=== PATIENT | male | born 1975 | race Caucasian/White ===

== ENCOUNTER 2022-01-10 14:15 | Emergency (ER) | payer OTHER, SELFPAY ==
--- NOTE | ~2022-01-10 | XR_ITS ---
EXAMINATION: XR HAND, RIGHT CLINICAL INFORMATION: Right thumb pain after trauma COMPARISON: None TECHNIQUE: PA, lateral, and oblique views of the right hand. FINDINGS: Chip fracture of the terminal tuft of the right thumb. There is overlying soft tissue ulceration. Remainder of the hands intact. There is degenerative change at the first CMC joint space. XR/XR hand RT 2V IMPRESSION: Chip fracture involving the terminal tuft of the first digit.
[2022-01-10 14:27] VITALS: BP 115/54; PULSE 83; RESP 20; TEMP 36.7; O2SAT 100; BMI 22.2
[2022-01-10] MEDS: oxyCODONE HCl Immed Release 5 MG TABLET PO (15:06)
[2022-01-10] MEDS: Ondansetron ODT 4 MG TAB.RAPDIS TRANSLINGU (15:06)
[2022-01-10] MEDS: Morphine Sulfate 4 MG/ML CARTRIDGE IM (15:06)
--- NOTE | 2022-01-10 16:29 | ED_ITS ---
HPI - Wound/Laceration General Chief Complaint: Extremity Injury, Upper Stated Complaint: thumb INJ Time Seen by Provider: 01/10/22 14:55 Source: patient and family ( at bedside ) Mode of arrival: ambulatory Limitations: no limitations History of Present Illness HPI narrative: 86-year-old male presenting to the ED with his at bedside with complaints of right thumb laceration after a large cement brick while he was doing a retaining wall fell onto his finger prior to arrival. He reports that he is not up-to-date on tetanus. He denies any paresthesias. He denies any thoughts of foreign bodies. Denies any other injuries complaints or concerns at this time. 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 Patient tetanus UTD: No Context: accidental Associated symptoms: pain Treatments prior to arrival: tourniquet Related Data Previous Rx's Medication Instructions Recorded acetaminophen 500 mg tablet 1,000 mg PO QID PRN fever or pain 01/10/22 (Tylenol Extra Strength) #14 tabs cephalexin 500 mg capsule 500 mg PO Q6H 10 days #40 caps 01/10/22 ibuprofen 800 mg tablet 800 mg PO Q8H PRN pain #14 tabs 01/10/22 oxycodone 5 mg tablet 5 mg PO Q6H PRN pain #14 tabs 01/10/22 Allergies Allergy/AdvReac Type Severity Reaction Status Date / Time No Known Allergies Allergy Verified 01/10/22 14:27 Review of Systems Review of Systems: Constitutional : No Fever, No Chills, Cardiovascular : No Chest Pain, No SOB Respiratory : No Dyspnea Gastrointestinal : No abdominal pain Musculoskeletal : No Joint Swelling Skin : positive skin laceration, No Foreign bodies, No rash, No surrounding erythema Neuro : No Weakness, No Numbness/tingling Psych : No SI/HI/thoughts of self injury Yes all other systems are reviewed and are negative [facility] Past Medical History Attestation statement: The following information was validated with the patient. Source: old records reviewed, obtained from family and nursing notes reviewed Physical Exam Vital Signs: Vital Signs: Last Vital Signs Temp 98.0 F 01/10/22 14:27 Pulse 83 01/10/22 14:27 Resp 20 01/10/22 14:27 BP 115/54 L 01/10/22 14:27 Pulse Ox 100 01/10/22 14:27 O2 Del Method 01/10/22 14:27 BMI result Body Mass Index 22.2 vital signs have been reviewed as normal and appeared to be correct. Blood pressure 115/54 Heart rate normal. Respiration rate normal. Temperature normal. Oxygen saturation normal. Appearance: Alert. Oriented X3. No acute distress. Head: Normal external exam. Normocephalic. Atraumatic. Eyes: PERRLA. EOMI. Conjunctiva and sclera normal. Eyelids normal. ENT: Pharynx normal. Uvula midline. Moist mucous membranes. Neck: Normal inspection. Neck supple. FROM. CVS: Normal heart rate and rhythm. Respiratory: No respiratory distress. Painless inspiration. Skin: Skin warm and dry. Normal skin color. Normal skin turgor. No rashes/lesi ons noted. Extremities: To the right thumb patient has a nail avulsion and a laceration to the mid to distal aspect of his thumb with muscle involvement no obvious ligamentous or tendon injury noted he has full range of motion. No bony tenderness or bone exposed at this time. Otherwise all other extremities exhibit normal range of motion nontender. Neuro: Oriented X 3. No motor deficit. No sensory deficit. Reflexes normal. Normal steady gait. No focal neuro deficits noted. Vascular: + radial pulses. Normal cap refill. No cyanosis noted to upper extremity nails Course Course Course Narrative: Patient now status post laceration repair with 10 simple running stitch. Xray of right thumb revealed chip fracture involving the terminal tuft of 1st digit. Otherwise no other acute processes noted. Patient tolerated procedure well. No complications. Patient has an appointment on Thursday with the orthopedic surgeons I discussed this case with April carver orthopedic PA. We rinsed out the wound with normal saline almost 1 L. We also updated the patient's tetanus. Therefore at this time patient will be discharged with antibiotics and instructions to follow-up with orthopedic surgeon and to return if any new or worsening symptoms. Patient and at bedside understand agree this plan. MDM - Wound/Laceration Medical Records Attestation: I reviewed the patient's medical records. Imaging Data Right hand x-ray: Attestation: I personally reviewed and interpreted this imaging study as follows: Radiologist's impression: FINDINGS: Chip fracture of the terminal tuft of the right thumb. There is overlying soft tissue ulceration. Remainder of the hands intact. There is degenerative change at the first CMC joint space.? XR/XR hand RT 2V IMPRESSION: Chip fracture involving the terminal tuft of the first digit. Procedures Laceration Laceration 1: Site: hand (thumb ) Side (If applicable): right Description: flap and irregular Depth: involves muscle layer and [id number] Local Anesthetic: bupivacaine 0.5% Amount of anesthesia used (mL): 20 Pre-repair: wound explored, irrigated extensively, deep structures intact and wound margins revised Skin layer closed with: nylon Size (cm): 4-0 Number of sutures: 10 Technique: simple, interrupted Critical Care Time Critical Care Time Critical Care Time: Yes Total Critical Care Time: 60 Attestation: I personally attest to this time spent taking care of the patient Discharge Plan Discharge Clinical Impression: Laceration of right thumb with damage to nail, Finger fracture, right, Avulsion of nail of right thumb, Crushing injury of right thumb Patient Disposition: Home, Self-Care Instructions: Finger Fracture (ED), Finger Laceration (ED), Nail Avulsion (ED) Prescriptions: New cephalexin 500 mg capsule 500 mg PO Q6H 10 Days Qty: 40 0RF ibuprofen 800 mg tablet 800 mg PO Q8H PRN (Reason: pain) Qty: 14 0RF acetaminophen [Tylenol Extra Strength] 500 mg tablet 1,000 mg PO QID PRN (Reason: fever or pain) Qty: 14 0RF oxycodone 5 mg tablet 5 mg PO Q6H PRN (Reason: pain) Qty: 14 0RF Rx Instructions: Partial Fill upon patient request. Referrals: Marilin Hopkins MD [Physician] - 3 days (Call to make a follow-up appointment on Thursday) Dana Arechiga MD [Primary Care Provider] - 1 week Interventions: ED Discharge Assessment Last Done: 01/10/22 16:50
[2022-01-10] MEDS: Diphth,Pertus(ACell),Tet Adult 0.5 ML SYRINGE IM (16:45)
== END 2022-01-10 16:53 | disposition home or self-care (01) ==
PROVIDERS: Emergency Provider Emergency Medicine; PCP Internal Medicine
DX: S61.011A Laceration without foreign body of right thumb without damage to nail, initial encounter (principal); S60.511A Abrasion of right hand, initial encounter; Y29.XXXA Contact with blunt object, undetermined intent, initial encounter; Y93.9 Activity, unspecified; Y92.9 Unspecified place or not applicable; Y99.9 Unspecified external cause status; Z79.899 Other long term (current) drug therapy
CPT/HCPCS: 12002; 73120; 90471; 90715; 96372; 99283; 99284; J2270

== ENCOUNTER 2022-04-21 19:18 | Emergency (ER) | payer OTHER, SELFPAY ==
--- NOTE | ~2022-04-21 | US_ITS ---
EXAMINATION: US VENOUS ULTRASOUND WITH DOPPLER LOWER EXTREMITY, RIGHT CLINICAL INFORMATION: Pain. Ecchymosis. COMPARISON: None TECHNIQUE: Ultrasound of the deep veins is performed from the hip to the calf with compression sonography and color and pulse Doppler assessment. Spectral analysis with color-flow imaging is performed. FINDINGS: There is normal venous compression and respiratory variation and augmented flow. The visualized common femoral vein, superficial femoral vein, profunda femoral vein, popliteal vein, and the trifurcation region shows no evidence of deep venous thrombosis. There is no significant popliteal fossa cyst. If the patient's symptoms persist, followup ultrasound in 5 days 7 days might be of value to exclude proximal propagation from a non-visualized calf vein. US/US venous duplex LE RT IMPRESSION: No DVT demonstrated in the right lower extremity.
[2022-04-21 19:46] VITALS: BP 114/73; PULSE 72; RESP 16; O2SAT 98; BMI 20.9
--- NOTE | 2022-04-21 19:55 | ED_ITS ---
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 He noticed the pain when he was kneeling on his knee at work. He denies any injury or trauma. Several days after the knee pain started he noticed scattered areas of bruising on his right lower extremity. He denies any trauma or banging his leg against anything at work. He has been able to walk and work normally. He denies any chest pain or shortness of breath. No personal or family history of blood clots. No coagulopathies that he is aware of. He is on no medications. MD complaint: knee injury Onset (ago): week(s) Injury: Right: knee Type of Injury: unknown Place: work Severity: mild Relieving factors: nothing Exacerbating factors: weight bearing, movement and palpation Associated symptoms: ambulatory Other symptoms: none Related Data Previous Rx's Medication Instructions Recorded acetaminophen 500 mg tablet 1,000 mg PO QID PRN fever or pain 01/10/22 (Tylenol Extra Strength) #14 tabs ibuprofen 800 mg tablet 800 mg PO Q8H PRN pain #14 tabs 01/10/22 Allergies Allergy/AdvReac Type Severity Reaction Status Date / Time No Known Allergies Allergy Verified 03/18/22 10:32 Review of Systems Review of Systems: Constitutional: No Fever, No Chills ENT/Mouth: No sore throat, No Rhinorrhea Cardiovascular: No Chest Pain, No SOB Gastrointestinal: No Nausea, No Vomiting, No abdominal Pain Musculoskeletal: + joint pain, No Myalgias Skin: No Skin Lesions, No rash Neuro: No Weakness, No Numbness, No Dizziness, No Headache Psych: No Anxiety/Panic, No Depression Heme/Lymph: + Bruising, No Lymphadenopathy PMFSH Social History Social History Alcohol intake: current Alcohol intake frequency: 0-2 drinks per day Alcohol type: beer Smoked in Last 30 Days: No Use of substances other than those prescribed or required for medical reasons: No Substance Use Type: Marijuana Substance Use Frequency: Weekly Last Used Substance: Days (ago) Any prior treatment program specific to substance use: No Advance Directives: No Advance Directives Information Provided: Yes Current occupational status: employed 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 Oriented X3. No acute distress. HEENT: normal inspection CVS: Normal heart rate and rhythm. Pulses normal. Respiratory: No respiratory distress. Skin: Skin warm and dry. Normal skin color. Normal skin turgor. No rashes. Extremities: right anterior/distal knee with mild generalized swelling and tenderness. no erythema or warmth. normal ROM. no joint laxiety appreciated. normal palpation of patellar tendon. scattered ecchymosis on distal right lower leg. no calf swelling or tenderness. Neuro: Oriented X 3. No motor deficit. No sensory deficit. Course Course Course Narrative: 47-year-old male presents the ER for evaluation of right knee pain and swelling along with scattered ecchymosis of the distal right leg, no trauma. Will check coags, platelets, ultrasound lower extremity to rule out DVT. Reevaluation(s) Reevaluation #1: Labs are normal. Coags are normal. Ultrasound did not show any evidence of DVT. Place an Manas wrap for support and compression. Will have him follow up with Orthopedics and his PCP. Stable for discharge home. MDM - Extremity Injury (Lower) Lab Data Result diagrams: 04/21/22 20:06 04/21/22 20:05 Labs: Lab Results 04/21/22 04/21/22 04/21/22 Range/Units 20:05 20:06 20:06 WBC 8.7 (4.8-10.8) X10*3/uL RBC 4.61 (4.60-5.80) X10*6/uL Hgb 14.9 (14.0-18.0) g/dl Hct 42.8 (42.0-52.0) % MCV 92.8 (80.0-98.0) fL MCH 32.3 (27.0-33.0) pg MCHC 34.8 (31.0-36.0) g/dl RDW 12.7 (11.0-16.0) % Plt Count 257 (160-400) X10*3/uL MPV 9.7 (9.4-12.4) fL Immature Gran % (Auto) 0.2 (0.0-0.4) % Neut % (Auto) 58.2 (45-73) % Lymph % (Auto) 28.0 (20-40) % Branch % (Auto) 9.7 (2-11) % Eos % (Auto) 3.1 (0-4) % Baso % (Auto) 0.8 (0-2) % Lymph # (Auto) 2.4 (1.2-4.9) X10*3/uL Branch # (Auto) 0.8 (0.1-1.2) X10*3/uL Eos # (Auto) 0.3 (0.0-0.4) X10*3/uL Baso # (Auto) 0.1 (0.0-0.2) X10*3/uL Abs Immat Gran (auto) 0.02 (0.00-0.03) X10*3/uL Absolute Neuts (auto) 5.1 (2.0-8.3) x10*3/uL Absolute Nucleated RBC 0.000 (0.0-0.012) X10*3/uL Nucleated RBC % (auto) 0.0 (0.0-0.2) /100WBC PT 11.0 (10.0-13.1) SEC INR 1.0 (0.9-1.1) APTT 32.9 (26.0-36.4) SEC Sodium 141 (135-145) mmol/L Potassium 4.1 (3.3-5.1) mmol/L Chloride 102 (96-108) mmol/L Carbon Dioxide 28 (22-29) mmol/L Anion Gap 15 (12-20) BUN 12 (9-16) mg/dL Creatinine 0.69 (0.5-1.4) mg/dL Estim Creat Clear Calc 127.3 Estimated GFR > 60 Random Glucose 69 (60-115) mg/dL Calcium 9.2 (8.4-10.2) mg/dL Total Bilirubin 0.4 (0.0-1.0) mg/dL Direct Bilirubin < 0.2 (0.0-0.5) mg/dL AST 27 (5-37) U/L ALT 29 (0-40) U/L Alkaline Phosphatase 63 (39-117) U/L Total Protein 7.0 (6.5-8.0) g/dL Albumin 4.3 (3.5-5.0) g/dL Critical Care Time Critical Care Time Critical Care Time: No Discharge Plan Discharge Clinical Impression: Acute pain of right knee Patient Disposition: Home, Self-Care Instructions: Knee Pain (ED) Additional Instructions: Your lab workup today was unremarkable. Your ultrasound did not show evidence of blood clot. Recommend you wearing the provided Manas wrap for compression and support. Rest and elevate your knee when possible. Apply ice several times per day to help with swelling and pain. Recommend following up with orthopedics for further evaluation. If you develop new or worsening symptoms call 911 or come back to the ER for further evaluation. Prescriptions: No Action ibuprofen 800 mg tablet 800 mg PO Q8H PRN (Reason: pain) Qty: 14 0RF acetaminophen [Tylenol Extra Strength] 500 mg tablet 1,000 mg PO QID PRN (Reason: fever or pain) Qty: 14 0RF Ref[place]: [facility] [place] [facility] [place] Group] (right knee pain)
[2022-04-21 20:10] LABS: Basophils Absolute Auto 0.1 X10*3/uL (0.0-0.2); Basophils Percent Auto 0.8 % (0-2); Eosinophils Absolute Auto 0.3 X10*3/uL (0.0-0.4); Eosinophils Percent Auto 3.1 % (0-4); Hematocrit 42.8 % (42.0-52.0); Hemoglobin 14.9 g/dl (14.0-18.0); Imm Gran Abs Auto 0.02 X10*3/uL (0.00-0.03); Imm Gran Pct Auto 0.2 % (0.0-0.4); Lymphocytes Absolute Auto 2.4 X10*3/uL (1.2-4.9); MANUAL DIFF FLAG NO; Mean Corpuscular HGB Conc 34.8 g/dl (31.0-36.0); Mean Corpuscular Hemoglobin 32.3 pg (27.0-33.0); Mean Corpuscular Volume 92.8 fL (80.0-98.0); Mean Platelet Volume 9.7 fL (9.4-12.4); Monocytes Absolute Auto 0.8 X10*3/uL (0.1-1.2); Monocytes Percent Auto 9.7 % (2-11); Neutrophils Absolute Auto 5.1 x10*3/uL (2.0-8.3); Neutrophils Percent Auto 58.2 % (45-73); Platelet Count 257 X10*3/uL (160-400); Red Blood Count 4.61 X10*6/uL (4.60-5.80); Red Cell Distribution Width 12.7 % (11.0-16.0); White Blood Count 8.7 X10*3/uL (4.8-10.8)
[2022-04-21 20:21] VITALS: BP 103/68; PULSE 54; RESP 16; TEMP 37.2; O2SAT 98
[2022-04-21 20:26] LABS: Partial Thromboplastin Time 32.9 SEC (26.0-36.4)
[2022-04-21 20:34] LABS: Alanine Aminotransferase 29 U/L (0-40); Albumin Level 4.3 g/dL (3.5-5.0); Alkaline Phosphatase 63 U/L (39-117); Anion Gap 15 (12-20); Aspartate Amino Transferase 27 U/L (5-37); Bilirubin Direct < 0.2 mg/dL (0.0-0.5); Bilirubin Total 0.4 mg/dL (0.0-1.0); Blood Urea Nitrogen 12 mg/dL (9-16); Calcium 9.2 mg/dL (8.4-10.2); Carbon Dioxide 28 mmol/L (22-29); Chloride 102 mmol/L (96-108); Creatinine Clr Calc Pharmacy 127.3; Estimated Glomerular Filt Rate > 60; Glucose Random 69 mg/dL (60-115); Potassium 4.1 mmol/L (3.3-5.1); Sodium 141 mmol/L (135-145)
[2022-04-21 21:31] VITALS: BP 106/60; PULSE 55; RESP 14; O2SAT 99
== END 2022-04-21 21:39 | disposition home or self-care (01) ==
PROVIDERS: Physician Assistant; Emergency Provider Internal Medicine
DX: M25.561 Pain in right knee (principal)
CPT/HCPCS: 36415; 80048; 80076; 85025; 85610; 85730; 93971; 99284

== ENCOUNTER 2022-07-03 15:59 | Outpatient (REF) | payer OTHER, SELFPAY | END 2022-07-03 16:00 | disposition home or self-care (01) | LOC: HO.HOSX 15:59 | PROVIDERS: Visit Provider Orthopaedic Surgery | DX: Z13.89 Encounter for screening for other disorder (principal) ==

== ENCOUNTER 2022-07-04 16:55 | Outpatient (REF) | payer OTHER, SELFPAY | END 2022-07-04 16:56 | disposition home or self-care (01) | LOC: HO.HOSX 16:55 | PROVIDERS: Visit Provider Orthopaedic Surgery | DX: Z13.89 Encounter for screening for other disorder (principal) ==

== ENCOUNTER 2023-08-11 13:52 | Outpatient (REF) | payer OTHER, SELFPAY ==
--- NOTE | ~2023-08-11 | XR_ITS ---
EXAMINATION: XR HAND, RIGHT CLINICAL INFORMATION: Thumb pain. COMPARISON: Radiographs dated 01/10/2022. TECHNIQUE: PA, lateral, and oblique views of the right hand. FINDINGS: There is interim healing of the previously identified avulsion fragment of the tuft of the first distal phalanx. Minimal soft tissue osseous fragments remain. No dislocation is seen. There is no abnormal bone erosion. The proximal and distal carpal rows are intact. No focal soft tissue swelling, gas or foreign body is seen. XR/XR hand RT min 3V IMPRESSION: Interim healing is noted on the previous identified avulsion fragment of the tuft of the right first distal phalanx. There are adjacent tiny chronic soft tissue calcifications, likely old minute avulsion fragments. There is no acute finding.
== END 2023-08-11 13:53 | disposition home or self-care (01) ==
LOC: HO.HOSX 13:52
PROVIDERS: Visit Provider Orthopaedic Surgery
DX: M79.641 Pain in right hand (principal); M79.644 Pain in right finger(s); L60.2 Onychogryphosis
CPT/HCPCS: 73130

== ENCOUNTER 2023-08-11 13:52 | Outpatient (AMB) | payer OTHER, SELFPAY ==
--- NOTE | 2023-08-11 14:17 | MHC.OFFVIS ---
Intake Vital Signs 08/11/23 14:18 Height 5 ft 10 in Weight 160 lb BMI 23.0 Intake Visit Reasons: OV-RT thumb pain D.O.I 01/10/22 Intake Note: Jose 48 yr old male who is right hand dominant presents today for his right thumb pain. He is S/P rt thumb laceration,states his thumb was caught in between 2 rocks on 01/10/2022. States he continues to have pain and sensitivity at tip of his thumb and interfering at work. Allergies No Known Allergies Allergy (Verified 08/11/23 14:19) HPI OV-RT thumb pain D.O.I 01/10/22 HPI Details Jose is a 48 year old right hand dominant man who presents with complaints of right thumb tip pain. He has a hx of right thumb open distal phalanx fracture, from a laceration & crush injury, DOI: 01/10/22. At his last appointment with SHRUTI Chen on 04/29/22 he had no thumb pain or other complaints. He presents today with complaints of pain and sensitivity to the ulnar tip of his thumb. The pain and tenderness appears to be at the edge of the sterile matrix on the more ulnar aspect of the thumb nail where it meets the hyponychium. He says his nail is not growing in properly and seems to curl down when its growing. he says this is whats causing his pain, and when he cuts his nail it eventually grows back in this position. He says he has numbness to the tip of his thumb, where it has more length on the radial tip of the thumb.. He describes this as if his thumb has been burned . He says he has developed some clumsiness and difficulty gripping writing utensils. 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 All wounds have healed well with no erythema drainage or evidence of infection. He had a crush injury to the tip of the thumb and had an eschar at the tip of the thumb that came off sometime in April of 2022. However it does appear that he lost some of the tissue in the ulnar tip of the thumb. The radial tip of the thumb has more length but is also relatively insensate to the tip of the thumb. He demonstrates that the area of most tenderness is where the ulnar edge of the sterile matrix meets the hyponychium. Indeed, the nail is shorter in this area, and the patient says that when it does grow out it tends to curl to a bit of a hook nail. Radiographs: 3 views of the right hand, with attention to the thumb, were taken and viewed by me today in clinic. They show a healed thumb distal phalanx fracture. There is perhaps some loss of bone at the ulnar tip of the distal phalanx. Psych Appearance: grossly normal Affect: normal affect Attitude: cooperative Assessment & Plan Assessment & Plan (1) Hook nail: Code(s): L60.2 - Onychogryphosis (2) Pain of right thumb: Code(s): M79.644 - Pain in right finger(s) Plan Assessment and plan: 1. Right thumb pain and hook nail, status post crush injury and partial tip amputation. Hx of open distal phalanx fracture, DOI: 01/10/22 2. Right thumb tip insensate again in area of crush injury and the radial tip. I educated him about this condition I discussed operative and non-operative treatment options At this point I am recommending a revision amputation of the tip of the right thumb with some shortening of the radial aspect of the distal phalanx, and also with excision of the distal aspect of the sterile nail matrix to get rid of his painful hook nail. The patient would like to proceed with surgery The risks and benefits of operative treatment were discussed with the patient and the patient wishes to proceed with surgery. These risks include, but are not limited to risk of damage to blood vessels, nerves, tendons, infection, recurrence, incomplete relief of preoperative symptoms, persistent pain, possible need for further surgery and the risks associated with regional blocks and anesthesia. The plan is to take the patient to the operating room sometime on 08/13/23 for the following procedures: 1. Right thumb revision amputation, under general 2. Right thumb excision of distal aspect of sterile nail matrix to alleviate hook nail, under general All of the preoperative paperwork including the consent was reviewed today. All the patient's questions were answered. The patient understands that they will be contacted by our surgery center administrator soon to schedule this procedure He denies Diabetes, blood thinners, asthma, heart, lung, kidney issues 2. History of right thumb open distal phalanx fracture 3. History of right thumb crush injury with ischemia of a flap of skin at the tip of the thumb. Scribed for Marilin Hopkins MD by Ole Cross, medical reviewer, on 08/11/23 at 2:55 PM, EST. Orders: Orders XR hand RT min 3V Today M79.641 - Pain in right hand Coding Level of Care Code Est Pt Level 4 (73644) Diagnoses Hook nail L60.2 Pain of right thumb M79.644
[2023-08-11 14:18] VITALS: BMI 23.0
== END 2023-08-11 15:13 | disposition home or self-care (01) ==
PROVIDERS: Visit Provider Orthopaedic Surgery
DX: S67.01XD Crushing injury of right thumb, subsequent encounter (principal); S68.521D Partial traumatic transphalangeal amputation of right thumb, subsequent encounter; L60.2 Onychogryphosis; M79.644 Pain in right finger(s)
CPT/HCPCS: 99214

== ENCOUNTER 2023-08-13 06:52 | Day surgery (SDC) | payer OTHER, SELFPAY ==
[2023-08-13 07:50] VITALS: BMI 24.8
[2023-08-13 07:52] VITALS: BP 118/65; PULSE 62; RESP 16; TEMP 37.3; O2SAT 96
--- NOTE | 2023-08-13 07:57 | HO.ANESPROP2 ---
HPI - Anesthesia Eval Consult details Narrative: thumb first digit amputation right PMFSH Active Problems Active Problems: All Active Problems (Updated 08/11/23 @ 16:23 by Marilin Hopkins MD) Pain of right thumb (Acute) Hook nail (Acute) Fracture of thumb, right open (Acute) Family History Family history of problems with anesthesia: No Surgical History History of Problems with Anesthesia: No Social History Social History Alcohol intake: current Alcohol intake frequency: 0-2 drinks per day Alcohol type: beer Patient Tobacco Use Status: Former Tobacco user Use of substances other than those prescribed or required for medical reasons: Yes Substance Use Type: Marijuana Are you DNR?: No Advance Directives: No Advance Directives Information Provided: Yes Current occupational status: employed 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 Discussed (marihuana daily smoking) and Chart Reviewed Final Anesthetic Review Family History of Problems with Anesthesia: No History of Problems with Anesthesia: No NPO: Yes ASA Class: II Final Preanesthetic Review: No Changes in Pt Med Stat, Meds/Allgs Chart Reviewed, Consent Obtained/Reviewed and Anes Risks/Benef Reviewed Patient Risk: Intermediate Procedure Risk: Low Anesthetic Plan Anesthetic Plan: GA Disposition: Standard PACU
[2023-08-13] MEDS: Lactated Ringers 1,000 ML 80 ML IVCONT (08:10)
--- NOTE | 2023-08-13 08:55 | P.OP_ITS ---
Operative Note Operative Note Date of Service: 08/13/23 Narrative: Operative Note Narrative: Preop diagnosis: 1. Painful Right thumb hook nail , ulnar-sided, following a crush injury 2. Insensate skin to the radial tip of the right thumb following a crush injury Postop diagnosis: Same Procedure: 1. Right thumb revision amputation with shortening of the distal phalanx 2. Right thumb excision of distal 2-3 mm of nail bed sterile matrix to correct hook nail deformity Surgeon: Marilin Hopkins MD Anesthesia: General Anesthesia Findings: Distal ulnar aspect of the right thumb nail bed noted to be depressed and angled downward, thus causing the hook nail deformity. Implants: None Tourniquet time: 30 minutes EBL: 5.0 ml Specimen: None Drains: None Complications: None Disposition: Brought to the recovery room in stable condition Plan: Follow-up in 10-14 days for wound check Anticipate suture removal at 3 weeks postop. Indications: The patient is a 48 year old man with crush injury to the tip of his right thumb with a nail bed injury resulting in an insensate more prominent radial tip of the thumb, and partial loss of bone structure at the ulnar tip of the thumb with depression of the soft tissues including the nail bed resulting in a painful hook nail deformity. . The risks and benefits of operative treatment, including but not limited to risk of damage to blood vessels, nerves, tendons, infection, recurrence, persistent pain or numbness, incomplete resolution of preoperative symptoms, or need for further surgery were discussed with the patient and they wished to proceed with surgery. Procedure: Once consent was obtained patient was brought back to the operating suite and placed in the operating table in a supine position. . Perioperative antibiotics and anesthesia was administered by the anesthesia team. A to urniquet was applied to the proximal aspect of the right upper extremity and the limb was prepped and draped in a standard surgical fashion. The limb was elevated exsanguinated with Esmarch bandage and the tourniquet inflated to 250 mm of mercury for a total tourniquet time of 30 minutes. I made a transverse incision at the distal edge of the right thumb nail bed sterile matrix and edge of the hyponychium. The incision was made through the skin and subcutaneous tissue and down onto the distal phalanx. I then used a [place] elevator to elevate the soft tissues off of the tip of the distal phalanx. I also used the [place] elevator to detach the nail plate from the distal 6 mm of the distal nail bed. I then used a pair of sharp scissors to cut transversely removing the distal 6 mm of the nail plate, thus exposing the distal aspect of the nail bed. He had some bone loss off the ulnar tip of the distal phalanx that then resulted in depression of the soft tissues including the ulnar aspect of the sterile matrix. This appeared to be what was causing his painful hook nail deformity. I used a rongeur to remove a few mm from the more radial edge of the distal phalanx, leveling the radial and ulnar aspects of the distal phalanx. I then cut about 2 mm off of the distal edge of the sterile matrix including the portion of the ulnar side of the sterile matrix that was causing the hook nail. This was then removed and placed on the back table. We now had a better supported edge of the distal sterile matrix across the entire width of the nail bed. I then used a 15. Blade to remove a few mm of the insensate skin from the more radial aspect of the tip of the thumb. The wound was then copiously irrigated with normal saline. I then brought the skin edge of the hyponychium up to the distal aspect of the nail bed. I was also able to shift some of the thicker tissues that were more radial, into a more ulnar position. The skin of the eponychium was then reapproximated to the distal edge of the nail bed using some 4-0 Prolene sutures. I was very happy with the overall appearance of the thumb, and believe this should likely resolve the hook nail deformity. At this point the tourniquet was deflated and hemostasis obtained with a brief period of local pressure . The wound was copiously irrigated with normal saline. A digital block was performed using some 0.5% ropivacaine and a sterile soft dressing was applied. The patient appears to have tolerated the procedure well and with no complications. All digits were well vascularized conclusion of the case including the flap of skin at the tip of the thumb..
--- NOTE | 2023-08-13 08:55 | MHC.SHP ---
Pre-Procedural Eval Section A - 24 Hr Update-Section A only Date of Service: 08/13/23 The patient is an INPATIENT: No The patient has been examined within 24 hours of the surgical procedure. The History & Physical has been completed within 30 days and I have reviewed it.: Yes Section B - Complete if H&P > 30 days Chief Complaint: Pain in right hand,Laceration without foreign body Allergies: Allergies Allergy/AdvReac Type Severity Reaction Status Date / Time No Known Allergies Allergy Verified 08/11/23 14:19 Plan I have reviewed the history and physical and performed a pertinent physical examination on my patient. No changes have occurred unless specified. Time Spent With Patient Time: Total time managing care of this patient today ____ minutes.
[2023-08-13 10:20] VITALS: BP 119/62; PULSE 71; RESP 16; TEMP 36.8; O2SAT 98
[2023-08-13 10:25] VITALS: BP 111/61; PULSE 71; RESP 16; O2SAT 97
[2023-08-13 10:30] VITALS: BP 116/53; PULSE 63; RESP 17; O2SAT 96
[2023-08-13 10:35] VITALS: BP 108/56; PULSE 61; RESP 17; O2SAT 95
[2023-08-13 11:01] VITALS: BP 114/73; PULSE 80; RESP 17; TEMP 36.7; O2SAT 98
== END 2023-08-13 11:45 | disposition home or self-care (01) ==
PROVIDERS: PCP Internal Medicine; Visit Provider Orthopaedic Surgery
PROC: (CPT 26951; principal; 2023-08-13 08:40)
DX: M79.644 Pain in right finger(s) (principal); L60.9 Nail disorder, unspecified; R20.8 Other disturbances of skin sensation; L98.8 Other specified disorders of the skin and subcutaneous tissue; Z87.81 Personal history of (healed) traumatic fracture; Z87.828 Personal history of other (healed) physical injury and trauma
CPT/HCPCS: 26951; 11750; J0131; J0690; J2250; J2704; J2795; J3010

== ENCOUNTER → 2023-08-13 06:52 | Outpatient (BNV) | payer OTHER, SELFPAY | PROVIDERS: PCP Internal Medicine; Visit Provider Orthopaedic Surgery | DX: S67.01XA Crushing injury of right thumb, initial encounter (principal); L60.9 Nail disorder, unspecified | CPT/HCPCS: 11750; 26951 ==

== ENCOUNTER 2023-08-25 08:38 | Outpatient (AMB) | payer OTHER, SELFPAY ==
--- NOTE | 2023-08-25 08:51 | MHC.OFFVIS ---
Intake Vital Signs 08/25/23 09:01 Height 5 ft 9 in Weight 170 lb BMI 25.1 Intake Visit Reasons: PO RT thumb rev amp 08/13/23 AR Intake Note: Jose 48 yr old male presents today for his PO RT thumb rev amp 08/13/23 AR wound check visit. States he is doing well and has no pain. Allergies No Known Allergies Allergy (Verified 08/25/23 08:53) HPI PO RT thumb rev amp 08/13/23 AR HPI Details Jose is a 48 year old right hand dominant man who returns S/P right thumb revision amputation with shortening of the distal phalanx & excision of distal nail bed sterile matrix, to correct a hook nail. DOS: 08/13/23. He has a hx of right thumb open distal phalanx fracture, from a laceration & crush injury, DOI: 01/10/22, which resulted in a painful hook nail. He is here for a wound check. He says he is doing well today, and denies any pain. He says following surgery he felt a throbbing pain in his thumb at night, but this resolved by the morning. He is pleased with the improved appearance of his thumb as well. 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 Good active thumb ROM Sensation is intact to the pad of the thumb. Cap refill is brisk Psych Appearance: grossly normal Affect: normal affect Attitude: cooperative Assessment & Plan Assessment & Plan (1) Hook nail: Code(s): L60.2 - Onychogryphosis Plan Assessment and plan: 1. Right thumb painful hook nail, S/P revision amputation with shortening of the distal phalanx & excision of distal nail bed sterile matrix, DOS: 08/13/23 Hx of open distal phalanx fracture, DOI: 01/10/22, from a crush injury 2. Right thumb tip insensate was in area of crush injury and the radial tip. Some of this insensate skin was excised, and the skin mobilized slightly to the opposite side defect. We will assess for sensation next time. The patient appears to be doing well post-operatively. I educated him about the post-operative course I explained the signs and symptoms of infection, if the patient develops any new or worsening erythema, drainage, pain, or warmth they should contact the clinic or attend the ED. I discussed activity modifications, he is to lift nothing heavier than a cellphone for the next several weeks He will perform gentle ROM exercises at home He is able to wash this in the shower He should avoid any underwater activities at this time He should keep this clean & covered when at work or out of the house. 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 He will follow up in 2 weeks for suture removal. Scribed for Marilin Hopkins MD by Ole Cross, biomedical photographer, on 08/25/23 at 9:00 AM, EST. Orders: Orders XR hand RT min 3V Today M79.641 - Pain in right hand Coding Level of Care Code Global (37554) Diagnoses Hook nail L60.2
[2023-08-25 09:01] VITALS: BMI 25.1
== END 2023-08-25 09:11 | disposition home or self-care (01) ==
PROVIDERS: Visit Provider Orthopaedic Surgery
DX: L60.2 Onychogryphosis (principal)
CPT/HCPCS: 99024

== ENCOUNTER 2023-08-25 10:10 | Outpatient (REF) | payer OTHER, SELFPAY ==
--- NOTE | ~2023-08-25 | XR_ITS ---
EXAMINATION: XR HAND, RIGHT CLINICAL INFORMATION: Pain. COMPARISON: Prior radiographs, most recently 08/11/2023. TECHNIQUE: PA, lateral, and oblique views of the right hand. FINDINGS: The bones and soft tissues are normal. There is a healed fracture of the tuft of the first distal phalanx, with adjacent minimal particulate comminution fragments. No acute fracture or dislocation is seen. Alignment is anatomic. The index finger is held in mild adduction. Joint spaces are maintained. No erosions or soft tissue calcifications. At the medial right wrist, an 8 mm dermal contour abnormality is seen, which may be correlated clinically. XR/XR hand RT min 3V IMPRESSION: No acute fracture or dislocation is seen. There is no abnormal erosive or change. No foreign body is seen.
== END 2023-08-25 10:11 | disposition home or self-care (01) ==
LOC: HO.HOSX 10:10
PROVIDERS: Visit Provider Orthopaedic Surgery
DX: M79.641 Pain in right hand (principal); L60.2 Onychogryphosis
CPT/HCPCS: 73130

== ENCOUNTER 2023-09-09 08:49 | Outpatient (AMB) | payer OTHER, SELFPAY ==
--- NOTE | 2023-09-09 08:58 | A.OFFVIS_ITS ---
Intake Intake Visit Reasons: PO stitches RT thumb rev amp 08/13/23 AR Intake Note: Jose 48 yr old male presents today for his PO visit for his right thumb rev amp 08/13/23 AR. States he is doing well and has no pain. Sutures removed and steri strips applied. Allergies No Known Allergies Allergy (Verified 09/09/23 08:59) HPI PO stitches RT thumb rev amp 08/13/23 AR HPI Details Jose is a 48 year old right hand dominant man who returns S/P right thumb revision amputation with shortening of the distal phalanx & excision of distal nail bed sterile matrix, to correct a hook nail, DOS: 08/13/23. He had a hx of right thumb open distal phalanx fracture, from a laceration & crush injury, DOI: 01/10/22, which resulted in a painful hook nail. He is here for a wound check & suture removal. He says he is doing well today, and denies any pain. He is pleased with the improved appearance of his thumb and he says he has been able to engage in activities more comfortably, such as tying his shoes. He does say he has some pain when he bumps his thumb against surfaces, but this is tolerable. He says his sensation is improved to the tip of his thumb. 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 Most sutures removed today, two remaining Good active thumb ROM Sensation is intact to the pad of the thumb, and more normal to the tip of the thumb Cap refill is brisk Psych Appearance: grossly normal Affect: normal affect Attitude: cooperative Assessment & Plan Assessment & Plan (1) Hook nail: Code(s): L60.2 - Onychogryphosis Plan Assessment and plan: 1. Right thumb painful hook nail, S/P revision amputation with shortening of the distal phalanx & excision of distal nail bed sterile matrix, DOS: 08/13/23 Hx of open distal phalanx fracture, DOI: 01/10/22, from a crush injury 2. Right thumb tip insensate was in area of crush injury and the radial tip. Some of this insensate skin was excised, and the skin mobilized slightly to the opposite side defect. He feels his sensation is more normal today The patient appears to be doing well post-operatively. He is happy with the results of his surgery. Most sutures removed today in clinic I educated him about the post-operative course I discussed activity modifications, he is able to use his hand for lightweight activities and slowly increase his weight limit as tolerated. He will perform ROM exercises at home He is able to wash this in the shower He should avoid any underwater activities until at least the weekend He should keep this clean & covered when at work or out of the house for the next week. 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 He will follow up next week for removal of remaining sutures Scribed for Marilin Hopkins MD by Ole Cross, medical office rep, on 09/09/23 at 9:00 AM, EST. Coding Level of Care Code Global (38534) Diagnoses Hook nail L60.2
== END 2023-09-09 09:22 | disposition home or self-care (01) ==
PROVIDERS: Visit Provider Orthopaedic Surgery
DX: L60.2 Onychogryphosis (principal)
CPT/HCPCS: 99024

== ENCOUNTER → 2023-09-09 08:49 | Outpatient (BNVA) | payer OTHER, SELFPAY | PROVIDERS: Visit Provider Orthopaedic Surgery ==

== ENCOUNTER 2023-09-16 09:34 | Outpatient (AMB) | payer OTHER, SELFPAY ==
[2023-09-16 09:37] VITALS: BMI 25.1
--- NOTE | 2023-09-16 09:37 | A.OFFVIS_ITS ---
Intake Vital Signs 09/16/23 09:37 Height 5 ft 9 in Weight 170 lb BMI 25.1 Intake Visit Reasons: PO- stitches RT thumb rev amp 08/13/23 AR Intake Note: Jose 48 yr old male presents today for his PO visit for his right thumb rev amp 08/13/23 AR. States he is doing well and has no pain. Remaining sutures removed. Allergies No Known Allergies Allergy (Verified 09/16/23 09:40) HPI PO- stitches RT thumb rev amp 08/13/23 AR HPI Details Jose is a 48 year old right hand dominant man who returns S/P right thumb revision amputation, DOS: 08/13/23. He is here for a wound check & remaining suture removal. He says he is doing well today, and denies any pain. He is pleased with the improved appearance of his thumb and he says he has been able to engage in activities more comfortably, such as tying his shoes. He says his sensation is improved to the tip of his thumb. 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 Remaining sutures removed today Good active thumb ROM Sensation is intact to the pad and now the tip of the thumb, secondary to skin rearrangement procedure Cap refill is brisk At present the nail appears to be growing out straight, and I no longer see evidence of a hook nail Psych Appearance: grossly normal Affect: normal affect Attitude: cooperative Assessment & Plan Assessment & Plan (1) Hook nail: Code(s): L60.2 - Onychogryphosis Plan Assessment and plan: 1. Right thumb painful hook nail, S/P revision amputation with shortening of the distal phalanx & excision of distal nail bed sterile matrix, and tissue rearrangement DOS: 08/13/23 Hx of open distal phalanx fracture, DOI: 01/10/22, from a crush injury 2. Right thumb tip insensate was in area of crush injury and the radial tip. Some of this insensate skin was excised, and the skin mobilized slightly to the opposite side defect. He feels his sensation to the tip of the thumb is more normal compared with before surgery. The patient appears to be doing well post-operatively. He is very happy with the results of his surgery. Remaining sutures removed today in clinic I educated him about the post-operative course He can now resume activities as tolerated. He will follow up p.r.n. Scribed for Marilin Hopkins MD by Ole Cross, medical representative, on 09/16/23 at 9:50 AM, EST. Coding Level of Care Code Global (11197) Diagnoses Hook nail L60.2
== END 2023-09-16 10:03 | disposition home or self-care (01) ==
PROVIDERS: Visit Provider Orthopaedic Surgery
DX: L60.2 Onychogryphosis (principal)
CPT/HCPCS: 99024

== ENCOUNTER → 2023-09-16 09:34 | Outpatient (BNVA) | payer OTHER, SELFPAY | PROVIDERS: Visit Provider Orthopaedic Surgery ==

== ENCOUNTER 2024-12-19 00:24 | Inpatient (IN) | payer OTHER, SELFPAY ==
[2024-12-19] VITALS (11 sets, daily range): BP systolic 101–133; BP diastolic 66–83; PULSE 64–110; RESP 11–20; TEMP 36.5–36.9; O2SAT 95–99; BMI 25.0; BMI 22.4
--- NOTE | 2024-12-19 | ECG_ITS ---
Test Reason : SEIZURES Blood Pressure : */* mmHG Vent. Rate : 91 BPM Atrial Rate : * BPM P-R Int : * ms QRS Dur : 102 ms QT Int : 372 ms P-R-T Axes : * 58 57 degrees QTcB Int : 457 ms Atrial fibrillation Abnormal ECG No previous ECGs available Referred By: Generic ED Physician Electronically Signed By: SHI CRUZ
--- NOTE | ~2024-12-19 | CT_ITS ---
CLINICAL HISTORY: new seizure activity CT Head WO Contrast COMPARISON: None provided FINDINGS: No acute intracranial hemorrhage. No evidence of acute infarction. No mass-effect or midline shift. No hydrocephalus. Cyst or polyp in the right maxillary sinus. Small fluid in the paranasal sinuses. The mastoid air cells are clear. The visible orbits are normal. No acute fracture. Unremarkable soft tissues. IMPRESSION: No acute intracranial findings. This document has been electronically signed by: Dustin Griffin MD on 12/19/2024 04:32:14
[2024-12-19 00:50] LABS: Hematocrit 41.4 % (42.0-52.0); Hemoglobin 14.7 g/dl (14.0-18.0); Imm Gran Abs Auto 0.06 X10*3/uL (0.00-0.03); Imm Gran Pct Auto 0.9 % (0.0-0.4); Lymphocytes Absolute Auto 2.3 X10*3/uL (1.2-4.9); MANUAL DIFF FLAG NO; Mean Corpuscular HGB Conc 35.5 g/dl (31.0-36.0); Mean Corpuscular Hemoglobin 32.7 pg (27.0-33.0); Mean Corpuscular Volume 92.0 fL (80.0-98.0); NRBC Abs Auto 0.000 X10*3/uL (0.0-0.012); NRBC Pct Auto 0.0 /100WBC (0.0-0.2); Platelet Count 208 X10*3/uL (160-400); Red Blood Count 4.50 X10*6/uL (4.60-5.80); White Blood Count 6.4 X10*3/uL (4.8-10.8)
[2024-12-19 01:04] LABS: Alanine Aminotransferase 30 U/L (0-40); Albumin Level 4.3 g/dL (3.5-5.0); Alkaline Phosphatase 68 U/L (39-117); Anion Gap 15 (12-20); Aspartate Amino Transferase 35 U/L (5-37); Blood Urea Nitrogen 15 mg/dL (9-16); Calcium 8.6 mg/dL (8.4-10.2); Carbon Dioxide 27 mmol/L (22-29); Chloride 102 mmol/L (96-108); Creatinine Clr Calc Pharmacy 113.9; Estimated Glomerular Filt Rate > 60; Potassium 3.9 mmol/L (3.3-5.1); Sodium 140 mmol/L (135-145); Total Protein 6.6 g/dL (6.5-8.0)
[2024-12-19 01:10] LABS: Troponin-I High Sensitivity < 2.7 ng/L (<3.5-35.0)
--- NOTE | 2024-12-19 01:44 | ED_ITS ---
HPI - Seizure General Chief Complaint: Seizure Stated Complaint: SEIZURE Time Seen by Provider: 12/19/24 01:43 Source: patient, family and EMS Mode of arrival: EMS Limitations: no limitations History of Present Illness ED Provider: Dr. Lucía Daley HPI Narrative: [age] year old male with a history alcohol use disorder presenting seizure activity that occurred immediately prior to arrival. Patient states that he does not recall everything that happened. Went to bed last night around 8 or 9:00 p.m. and next thing he remembers is waking up with ENT standing over him. His is at bedside and reports that she heard him having sonorous respirations and noted him to have seizure activity with full body shaking that lasted approximately 10 minutes. She called 911 and ultimately the patient became slightly confused and was walking around to the bathroom, lifting up the toilet seat, not communicating appropriately. EMS reports postictal behavior upon their arrival to the home. Patient admits that he is a 10-12 beer per day drinker and has been drinking like this for about a year now. Admits he has not tried to stop drinking before. Wanted to start cutting back and has not had a drink for 48 hours or so. No history of seizure activities. Had been feeling well prior to this event. Denies recent illness including fever, headache, vision changes, numbness/tingling/weakness of the extremities, nausea or vomiting bowel changes or urinary complaints. Seizure History: No Place: Home Related Data Home Medications ?Medication ?Instructions ?Recorded ?Confirmed No Known Home Meds 12/19/24 12/19/24 Allergies Allergy/AdvReac Type Severity Reaction Status Date / Time No Known Allergies Allergy Verified 12/19/24 00:38 Review of Systems 2 Review of Systems: Yes all other systems are reviewed and are negative (As per HPI ) [facility] Past Medical History Source: obtained from family Medical History Alcohol dependence Social History Social History Household Members: Spouse Housing: House Do you presently have visiting nurse or other home services: No Alcohol intake: former Patient Tobacco Use Status: Former Tobacco user Substance Use Type: Marijuana Current occupational status: employed 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 SKIN: Normal skin color for ethnicity, warm, dry, no rashes noted. HEENT: Normocephalic, atraumatic, no stridor, dry mucous membranes, dentition intact, EOMI, PERRLA. NECK: Soft, supple, full ROM, midline structures nontender, no step-offs, no deformities, no lymphadenopathy. CHEST: Heart regular tachycardia, no murmurs, symmetric chest rise and fall. PULMONARY: Clear to auscultation bilaterally, diminished at the bases, no labored breathing, no wheezes/rhales/rhonchi. ABDOMINAL: Soft, nondistended, nontender, positive bowel sounds in all quadrants. : Deferred. MUSCULOSKELETAL: Normal tone, full range of motion, no deformities, no peripheral edema. NEURO: Alert and oriented x3, CN II through XII intact, equal strength and sensation bilateral upper and lower extremities, no focal neurologic deficits. PSYCHIATRIC: Flat affect, fluid speech, good eye contact and appropriate demeanor. Medications Administered Generic Name Dose Route Start Last Admin Trade Name Freq PRN Reason Stop Dose Admin Thiamine HCl 200 mg/ Sodium 102 mls @ 204 mls/hr 12/19/24 10:35 12/19/24 11:54 Chloride IV 12/22/24 10:34 Infused DAILY FABRICIO Infusion Melatonin 6 mg 12/19/24 08:57 12/19/24 20:19 Melatonin 3 Mg Tablet PO 6 mg BEDTIME PRN Administration Insomnia Phenobarbital 45 mg 12/19/24 21:00 12/19/24 20:19 Phenobarbital 15 Mg Tablet PO 12/21/24 09:01 45 mg BID FABRICIO Administration Sodium Chloride 3 ml 12/19/24 16:00 12/19/24 20:20 0.9 % Sodium Chloride Flush 3 Ml Syringe IVFLUSH 3 ml QSHIFT FABRICIO Administration Discontinued Medications Generic Name Dose Route Start Last Admin Trade Name Freq PRN Reason Stop Dose Admin Lorazepam 2 mg 12/19/24 01:44 12/19/24 01:55 Lorazepam 2 Mg/Ml Vial IVPUSH 12/19/24 01:45 2 mg ONCE ONE Administration Phenobarbital Sodium 292 mg 12/19/24 07:15 12/19/24 07:48 Phenobarbital Sodium 130 Mg/Ml Im Once IM 12/19/24 07:16 292 mg ONCE ONE Administration Phenobarbital Sodium 219 mg 12/19/24 10:15 12/19/24 13:31 Phenobarbital Sodium 130 Mg/Ml Vial Im Q3hx2 IM 12/19/24 13:16 219 mg Q3H FABRICIO Administration Medical Decision Making Medical Decision Making [facility] Narrative: Patient presents today with a chief complaint of altered mental status, potential seizure activity. Differential diagnosis for AMS is incredibly broad and includes seizures/postictal state, infection, intracranial process such as hemorrhage, stroke or mass, electrolyte abnormality, hypercarbia, hypoxia, toxic encephalopathy, among many others. Broad-based workup was initiated to further evaluate the etiology of patient's symptoms based on the above exam and history. Patient's clinical picture consistent with alcohol withdrawal seizure. Patient arrived with an elevated withdrawal score. Given Ativan. Significantly improved his symptoms. We will admit to hospitalist for further care and evaluation of alcohol withdrawal seizures and medication assisted therapy for detox. Differential Diagnosis Differential Diagnoses: The differential diagnosis associated with the presentation includes (As above) Admission/Observation Consideration of admission/observation: Escalation of care including admission/observation considered Consult Healthcare Provider Management of the patient was discussed with: Hospitalist Lab Data [facility] Lab Attestation statement: I reviewed the patient's lab results. 12/19/24 00:41 12/19/24 00:41 Labs: Lab Results 12/19/24 Range/Units 00:41 WBC 6.4 (4.8-10.8) X10*3/uL RBC 4.50 L (4.60-5.80) X10*6/uL Hgb 14.7 (14.0-18.0) g/dl Hct 41.4 L (42.0-52.0) % MCV 92.0 (80.0-98.0) fL MCH 32.7 (27.0-33.0) pg MCHC 35.5 (31.0-36.0) g/dl RDW 12.8 (11.0-16.0) % Plt Count 208 (160-400) X10*3/uL MPV 9.3 L (9.4-12.4) fL Immature Gran % (Auto) 0.9 H (0.0-0.4) % Neut % (Auto) 44.3 L (45-73) % Lymph % (Auto) 36.5 (20-40) % Cassia % (Auto) 11.9 H (2-11) % Eos % (Auto) 5.6 H (0-4) % Baso % (Auto) 0.8 (0-2) % Lymph # (Auto) 2.3 (1.2-4.9) X10*3/uL Cassia # (Auto) 0.8 (0.1-1.2) X10*3/uL Eos # (Auto) 0.4 (0.0-0.4) X10*3/uL Baso # (Auto) 0.1 (0.0-0.2) X10*3/uL Abs Immat Gran (auto) 0.06 H (0.00-0.03) X10*3/uL Absolute Neuts (auto) 2.8 (2.0-8.3) x10*3/uL Absolute Nucleated RBC 0.000 (0.0-0.012) X10*3/uL Nucleated RBC % (auto) 0.0 (0.0-0.2) /100WBC Sodium 140 (135-145) mmol/L Potassium 3.9 (3.3-5.1) mmol/L Chloride 102 (96-108) mmol/L Carbon Dioxide 27 (22-29) mmol/L Anion Gap 15 (12-20) BUN 15 (9-16) mg/dL Creatinine 0.81 (0.5-1.4) mg/dL Estim Creat Clear Calc 113.9 Estimated GFR > 60 Random Glucose 114 (60-115) mg/dL Calcium 8.6 D (8.4-10.2) mg/dL Magnesium 1.9 (1.6-2.6) mg/dL Total Bilirubin 0.4 (0.0-1.0) mg/dL AST 35 (5-37) U/L ALT 30 (0-40) U/L Alkaline Phosphatase 68 (39-117) U/L Troponin I High Sens < 2.7 (<3.5-35.0) ng/L Total Protein 6.6 (6.5-8.0) g/dL Albumin 4.3 (3.5-5.0) g/dL Ethyl Alcohol < 10 mg/dL Independent Interpretation I performed an independent interpretation of an: CT Scan (No acute intracranial process) Radiology Impression Discussion of test interpretation with radiology: I have reviewed the radiologist's reading. Independent Historian Clinical information obtained from an independent historian. History obtained from or confirmed by: Spouse Discharge Plan Discharge Clinical Impression: Alcohol withdrawal syndrome, Alcohol withdrawal seizure Patient Disposition: Admitted As Inpatient Interventions: Admission Worksheet (ED) Last Done: 12/19/24 15:22 Discharge Date/Time: 12/19/24 16:28
[2024-12-19] MEDS: LORazepam 2 MG/ML VIAL IVPUSH (01:55)
--- NOTE | 2024-12-19 02:03 | PC.NURSE ---
pt evie from home, called after witnessing her having a seizure. state she woke up to on the floor foaming out the mouth, diaphoretic and shaking. Per and pt, pt has no hx of seizures. PT reports he stopped drinking 2 days ago, previously daily drinker 8-10 beers/day. Pt denies any etoh withdrawal hx. Pts CIWA score 12, MD Daley aware, 2mg of ativan IV administered per order. Pt is a&ox4 speaking in full clear sentences and able to ambulate with steady gait. Pt has 18G EMS placed IV.
[2024-12-19 02:16] LABS: Magnesium 1.9 mg/dL (1.6-2.6)
[2024-12-19] MEDS: PHENobarbitaL sodium 130 MG/ML IM ONCE 292 MG IM (07:48)
--- NOTE | 2024-12-19 08:29 | PHA.MEDREC ---
Pharmacy Consult ? Medication Reconciliation Pharmacy has completed the medication reconciliation. Spoke to patient and spouse Sarmad at bedside who confirmed patient does not take any medications at home (no otc pain meds nor vitamins).
--- NOTE | 2024-12-19 08:58 | PM.IMHP ---
History of Present Illness Date of Service: 12/19/24 Chief Complaint: ams, convulsions 49M PMH alcohol dependence presented with convulsions and altered mental status. Patient drinks about 12 beers per day. Was interested and slowing down so he has not been drinking for the past 2 days. At 23:30 night prior to presentation patient was noted to be unresponsive, foaming at the mouth, low amplitude convulsions. EMS was called. After event patient was very confused and disoriented wandering around house, non purposeful movements. In ED, CT head unremarkable. Initial CIWA 12, given lorazepam 2 mg and started on phenobarbital protocol with good response. 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 Allergies Allergy/AdvReac Type Severity Reaction Status Date / Time No Known Allergies Allergy Verified 12/19/24 00:38 Active Medications: Current Medications Pharmacy Consult (Consult Rx Etoh Phenob Im/Po) 1 each MISCELLANE ONCE PRN; Protocol PRN Reason: Consult order Phenobarbital (Phenobarbital 15 Mg Tablet) 45 mg PO BID FABRICIO Stop: 12/21/24 09:01 Phenobarbital (Phenobarbital 30 Mg Tablet) 30 mg PO BID FABRICIO Stop: 12/23/24 09:01 Phenobarbital (Phenobarbital 30 Mg Tablet) 30 mg PO BEDTIME FABRICIO Stop: 12/24/24 21:01 Phenobarbital Sodium (Phenobarbital Sodium 130 Mg/Ml Vial Im Q3hx2) 219 mg IM Q3H FABRICIO Stop: 12/19/24 13:16 Home Medications ?Medication ?Instructions ?Recorded ?Confirmed ?Last Taken ?Type No Known Home Meds 12/19/24 12/19/24 Unknown History Physical Exam Vital Signs and Narrative: Vital Signs: Last Vital Signs Temp 98.2 F 12/19/24 06:11 Pulse 72 12/19/24 07:33 Resp 11 L 12/19/24 07:33 BP 109/74 12/19/24 07:33 Pulse Ox 95 12/19/24 07:33 O2 Del Method Room Air 12/19/24 07:33 BMI result Body Mass Index 25.0 lethargic, oriented x 3 no acute distress, lungs clear, heart sounds normal Results Labs 12/19/24 00:41 12/19/24 00:41 Labs: Laboratory Results - last 24 hr 12/19/24 00:41 MCV 92.0 MCH 32.7 MCHC 35.5 RDW 12.8 Plt Count 208 MPV 9.3 L Immature Gran % (Auto) 0.9 H Neut % (Auto) 44.3 L Lymph % (Auto) 36.5 Rankin % (Auto) 11.9 H Eos % (Auto) 5.6 H Baso % (Auto) 0.8 Lymph # (Auto) 2.3 Rankin # (Auto) 0.8 Eos # (Auto) 0.4 Baso # (Auto) 0.1 Abs Immat Gran (auto) 0.06 H Absolute Neuts (auto) 2.8 Absolute Nucleated RBC 0.000 Nucleated RBC % (auto) 0.0 Anion Gap 15 Estim Creat Clear Calc 113.9 Estimated GFR > 60 Random Glucose 114 Calcium 8.6 D Magnesium 1.9 Total Bilirubin 0.4 AST 35 ALT 30 Alkaline Phosphatase 68 Total Protein 6.6 Albumin 4.3 Ethyl Alcohol < 10 Assessment and Plan (1) Alcohol dependence: Status: Acute Plan 49M PMH alcohol dependence presented with convulsions and altered mental status etoh dependence with withdrawal complicated by seizure and acute metabolic encephalopathy from post ictal confusion tele, ciwa, phenobarb, monitor LFTs, electrolytes addiction eval dvt prophylaxis - lovenox full code based on withdrawal seizure and risk for DTs expected to require atleast 2 midnights inpatient. Quality Stroke Does the patient have a stroke diagnosis?: No VTE Prior VTE?: No VTE Risk Level:: Medical - moderate - high VTE Device Contraindication: Treatment Not Indicated VTE Drug Contraindication: N/A - Med Ordered
[2024-12-19] MEDS: PHENobarbitaL sodium 130 MG/ML VIAL IM Q3Hx2 219 MG IM ×2 (10:34→13:31)
[2024-12-19] MEDS: Thiamine HCL 200 MG in 0.9 % Sodium Chloride 100 ML 204 MG IV (11:12)
--- NOTE | 2024-12-19 13:44 | PC.NURSE ---
Pt A&O X4 VSS patient denies complaints except discomfort from stretcher. Hosp bed requested.
--- NOTE | 2024-12-19 14:27 | HO.ADDICT_ITS ---
History of Present Illness Date of Service: 12/19 Chief Complaint: Alcohol Withdrawal Reason for Consult: AUD Sources of Information: chart reviewed Additional Sources of Information: patients HPI Narrative: Patient is a 49 year old male who presented to [facility] following a reported seizure at home. In ED, patients reported that he normal drinks several beers daily, and the last 2 days had not drank any. CIWA 12 in ED--phenobarbital protocol initiated, and patient medically admitted. Patient seen in room 10 of main ED--all information obtained from , as patient was sleeping soundly--would open eyes to voice, but quickly fall back to sleep. She reports that patient drinks several beers daily at home. This weekend he had a vodka with orange juice in the morning and no other alcohol the remainder of the day. She is unaware of what he did not drink, feels it may be related to her asking him to cut down. She is slightly tearful sharing what occurred as it was frightening for her to see him have a seizure. She denies any previous history of alcohol withdrawal sx for patient . Denies noticing any tremor throughout the wkend, and patient did no complain of any sx. Denies any knowledge of treatment history for him. Labs reviewed Review of Systems Review of Systems Yes Unobtainable due to mental status Diagnostics Vital Signs (24Hr): Vital Signs - 24 hr 12/19/24 00:34 12/19/24 01:40 12/19/24 03:34 Temperature 98.0 F Pulse Rate 81 87 97 Respiratory Rate 19 20 14 Blood Pressure 101/80 118/83 118/78 Pulse Oximetry 96 99 95 Oxygen Delivery Method Room Air Room Air Room Air 12/19/24 06:11 12/19/24 07:33 12/19/24 12:59 Temperature 98.2 F 98.3 F Pulse Rate 94 72 84 Respiratory Rate 20 11 L 16 Blood Pressure 110/76 109/74 111/79 Pulse Oximetry 97 95 98 Oxygen Delivery Method Room Air Room Air BMI result Body Mass Index 25.0 Labs 12/19/24 00:41 12/19/24 00:41 Labs: Laboratory Results - last 48 hr 12/19/24 00:41 WBC 6.4 RBC 4.50 L Hgb 14.7 Hct 41.4 L MCV 92.0 MCH 32.7 MCHC 35.5 RDW 12.8 Plt Count 208 MPV 9.3 L Immature Gran % (Auto) 0.9 H Neut % (Auto) 44.3 L Lymph % (Auto) 36.5 Esmeralda % (Auto) 11.9 H Eos % (Auto) 5.6 H Baso % (Auto) 0.8 Lymph # (Auto) 2.3 Esmeralda # (Auto) 0.8 Eos # (Auto) 0.4 Baso # (Auto) 0.1 Abs Immat Gran (auto) 0.06 H Absolute Neuts (auto) 2.8 Absolute Nucleated RBC 0.000 Nucleated RBC % (auto) 0.0 Sodium 140 Potassium 3.9 Chloride 102 Carbon Dioxide 27 Anion Gap 15 BUN 15 Creatinine 0.81 Estim Creat Clear Calc 113.9 Estimated GFR > 60 Random Glucose 114 Calcium 8.6 D Magnesium 1.9 Total Bilirubin 0.4 AST 35 ALT 30 Alkaline Phosphatase 68 Troponin I High Sens < 2.7 Total Protein 6.6 Albumin 4.3 Ethyl Alcohol < 10 Mental Status Exam Mental Status Exam Level of Consciousness: Sedated Medications Medications Current Medications Acetaminophen (Acetaminophen 325 Mg Tablet) 650 mg PO Q6H PRN PRN Reason: Pain, Mild 1-3,fever,headache Calcium Carbonate (Calcium Carbonate 750 Mg Tab.Chew) 750 mg PO Q4H PRN PRN Reason: Heartburn Enoxaparin Sodium (Enoxaparin Sodium 40 Mg/0.4 Ml Syringe) 40 mg SUBCUT Q24H FABRICIO Thiamine HCl 200 mg/ Sodium (Chloride) 102 mls @ 204 mls/hr IV DAILY FABRICIO Stop: 12/22/24 10:34 Last Infusion: 12/19/24 11:54 Dose: Infused Magnesium Hydroxide (Milk Of Magnesia 30 Ml Oral.Susp) 30 ml PO DAILY PRN PRN Reason: Constipation Melatonin (Melatonin 3 Mg Tablet) 6 mg PO BEDTIME PRN PRN Reason: Insomnia Pharmacy Consult (Consult Rx Etoh Phenob Im/Po) 1 each MISCELLANE ONCE PRN; Protocol PRN Reason: Consult order Phenobarbital (Phenobarbital 15 Mg Tablet) 45 mg PO BID FABRICIO Stop: 12/21/24 09:01 Phenobarbital (Phenobarbital 30 Mg Tablet) 30 mg PO BID FABRICIO Stop: 12/23/24 09:01 Phenobarbital (Phenobarbital 30 Mg Tablet) 30 mg PO BEDTIME FABRICIO Stop: 12/24/24 21:01 Sodium Chloride (0.9 % Sodium Chloride Flush 3 Ml Syringe) 3 ml IVFLUSH QSHIFT FABRICIO Allergies Allergies Allergy/AdvReac Type Severity Reaction Status Date / Time No Known Allergies Allergy Verified 12/19/24 00:38 Assessment & Plan Assessment & Plan (1) Alcohol withdrawal: Status: Acute Code(s): F10.939 - Alcohol use, unspecified with withdrawal, unspecified Assessment and Plan: * continue CIWA phenobarbital taper in place * IV thiamine ordered --can switch to PO after 3 days * Mg level ordered for AM * will follow up in AM and meet with patient once he is more awake * provided support and education related to alcohol withdrawal and treatment plan to at bedside Total time managing care of this patient today _35___ minutes. 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
[2024-12-19] MEDS: 0.9 % Sodium Chloride Flush 3 ML SYRINGE IVFLUSH ×2 (17:03→20:20)
[2024-12-19 17:30] LABS: Cannabinoid Screen Urine POSITIVE (Not Detect)
[2024-12-20 03:28] VITALS: BP 128/83; PULSE 63; RESP 18; TEMP 37.2; O2SAT 97
[2024-12-20 06:57] LABS: Hematocrit 44.7 % (42.0-52.0); Hemoglobin 15.6 g/dl (14.0-18.0); Mean Corpuscular HGB Conc 34.9 g/dl (31.0-36.0); Mean Corpuscular Hemoglobin 32.1 pg (27.0-33.0); Mean Corpuscular Volume 92.0 fL (80.0-98.0); NRBC Abs Auto 0.000 X10*3/uL (0.0-0.012); NRBC Pct Auto 0.0 /100WBC (0.0-0.2); Platelet Count 212 X10*3/uL (160-400); Red Blood Count 4.86 X10*6/uL (4.60-5.80); White Blood Count 9.0 X10*3/uL (4.8-10.8)
[2024-12-20 07:05] LABS: Alanine Aminotransferase 31 U/L (0-40); Albumin Level 4.2 g/dL (3.5-5.0); Alkaline Phosphatase 58 U/L (39-117); Anion Gap 12 (12-20); Aspartate Amino Transferase 60 U/L (5-37); Blood Urea Nitrogen 15 mg/dL (9-16); Calcium 8.6 mg/dL (8.4-10.2); Carbon Dioxide 27 mmol/L (22-29); Chloride 103 mmol/L (96-108); Creatinine Clr Calc Pharmacy 135.3; Estimated Glomerular Filt Rate > 60; Magnesium 2.0 mg/dL (1.6-2.6); Potassium 3.7 mmol/L (3.3-5.1); Sodium 138 mmol/L (135-145); Total Protein 6.9 g/dL (6.5-8.0)
[2024-12-20 07:49] VITALS: BP 137/81; PULSE 77; RESP 18; TEMP 36.2; O2SAT 99
[2024-12-20] MEDS: Thiamine HCL 200 MG in 0.9 % Sodium Chloride 100 ML 204 MG IV (09:36)
--- NOTE | 2024-12-20 09:42 | P.DS_ITS ---
DS: Providers Provider Date of Service: 12/20/24 Date of admission: 12/19/24 07:56 Date of discharge: 12/20/24 Primary care physician: Dana Arechiga MD Consults: 12/19/24 08:57 Addiction Medicine Provider Routine Consulting Provider: Addiction Covering Reason for consultation: etoh DS: Diagnosis Discharge Diagnosis (1) Alcohol withdrawal: Status: Acute DS: Summary Hospital Course Hospital Course: from initial hpi: 49M PMH alcohol dependence presented with convulsions and altered mental status. Patient drinks about 12 beers per day. Was interested and slowing down so he has not been drinking for the past 2 days. At 23:30 night prior to presentation patient was noted to be unresponsive, foaming at the mouth, low amplitude convulsions. EMS was called. After event patient was very confused and disoriented wandering around house, non purposeful movements. In ED, CT head unremarkable. Initial CIWA 12, given lorazepam 2 mg and started on phenobarbital protocol with good response. hospital course: Patient was admitted for alcohol dependence with withdrawal complicated by seizure and acute metabolic encephalopathy from postictal confusion. He was treated with phenobarbital protocol and symptoms resolved faster than expected. Patient is feeling back to baseline. Was given resources by Addiction team and will be discharged home. Time Attestation Discharge Coordination Time (in mins): 33 Quality: Safe Use of Opioids Does Pt have an Active Cancer Diagnosis on the Problem List?: No Quality: Stroke Does the patient have a stroke diagnosis?: No Physical Exam Vital Signs: Vital Signs: Last Vital Signs Temp 97.1 F 12/20/24 07:49 Pulse 77 12/20/24 07:49 Resp 18 12/20/24 07:49 BP 137/81 12/20/24 07:49 Pulse Ox 99 12/20/24 07:49 O2 Del Method Room Air 12/20/24 07:49 BMI result Body Mass Index 22.4 General: AO X 3, no acute distress Resp: CTA bilateral, no accessory muscles used CVS: S1,S2,RRR GI: soft, non tender, non distended Neuro: motor grossly intact, alert Psych: appropriate affect, appropriate insight DS: Data Data Completed and Pending Labs on day of discharge: Laboratory Results - last 24 hr 12/19/24 12/20/24 Unknown 06:27 WBC 9.0 RBC 4.86 Hgb 15.6 Hct 44.7 MCV 92.0 MCH 32.1 MCHC 34.9 RDW 12.5 Plt Count 212 MPV 9.8 Absolute Nucleated RBC 0.000 Nucleated RBC % (auto) 0.0 Sodium 138 Potassium 3.7 Chloride 103 Carbon Dioxide 27 Anion Gap 12 BUN 15 Creatinine 0.68 Estim Creat Clear Calc 135.3 Estimated GFR > 60 Random Glucose 94 Calcium 8.6 Magnesium 2.0 Total Bilirubin 0.9 Direct Bilirubin 0.3 AST 60 H ALT 31 Alkaline Phosphatase 58 Total Protein 6.9 Albumin 4.2 Urine Opiates Screen Not Detected Ur Buprenorphine Scrn Not Detected Ur Oxycodone Screen Not Detected Urine Methadone Screen Not Detected Urine Fentanyl Screen Not Detected Ur Barbiturates Screen POSITIVE H Ur Phencyclidine Scrn Not Detected Ur Amphetamines Screen Not Detected U Benzodiazepines Scrn Not Detected Urine Cocaine Screen Not Detected U Marijuana (THC) Screen POSITIVE H Discharge Plan Discharge Anticipated Discharge Date/Time: 12/20/24 09:41 Patient Disposition: Home, Self-Care Discharge Diagnosis: etoh withdrawal seizure Referrals: Dana Arechiga MD [Primary Care Provider, Internal Medicine] - 1 Week Discharge Medications: No Action No Known Home Meds Discharge Orders: Discharge Order (Routine); Ordered 12/20/24 Ordered By: Suhail Eduardo Diet: Advance to usual diet Activity on Discharge: As tolerated Stand Alone Forms: Patient Portal Discharge page Print Language: New Zealander Care Plan Goals: recovery Health Concerns: eoth dependence Plan of Treatment: avoid etoh Assessment: see above
[2024-12-20] MEDS: 0.9 % Sodium Chloride Flush 3 ML SYRINGE IVFLUSH (09:51)
--- NOTE | 2024-12-20 09:54 | MHC.CM.PN ---
Pt. has been medically cleared to [place], he will go home via private transport, plan is self care.
== END 2024-12-20 11:30 | disposition home or self-care (01) | DRG 775 ==
LOC: HO.ED 01:43 → HO.EDOVER 07:59 → HO.IMC 14:36
PROVIDERS: Admitting Provider Student in an Organized Health Care Education/Training Program; Emergency Provider Emergency Medicine; PCP Internal Medicine; Visit Provider Internal Medicine
DX: F10.239 Alcohol dependence with withdrawal, unspecified (principal); R56.9 Unspecified convulsions; Z87.891 Personal history of nicotine dependence
CPT/HCPCS: 36415; 70450; 80048; 80053; 80076; 80307; 83735; 84484; 85025; 85027; 93005; 99285; J1650; J2060; J2560; J3411; S9485

== ENCOUNTER → 2024-12-19 00:48 | Outpatient (BNV) | payer OTHER, SELFPAY | PROVIDERS: Admitting Provider Student in an Organized Health Care Education/Training Program; Emergency Provider Emergency Medicine; PCP Internal Medicine; Visit Provider Internal Medicine | DX: I48.91 Unspecified atrial fibrillation (principal) | CPT/HCPCS: 93010 ==

== ENCOUNTER → 2024-12-19 03:15 | Outpatient (BNV) | payer OTHER, SELFPAY | PROVIDERS: Emergency Provider Emergency Medicine; PCP Internal Medicine; Visit Provider Radiology Diagnostic Radiology | DX: R56.9 Unspecified convulsions (principal) | CPT/HCPCS: 70450 ==

== ENCOUNTER → 2024-12-19 07:56 | Outpatient (BNV) | payer OTHER, SELFPAY | PROVIDERS: Admitting Provider Student in an Organized Health Care Education/Training Program; Emergency Provider Emergency Medicine; PCP Internal Medicine; Visit Provider Nurse Practitioner Psychiatric/Mental Health | DX: F10.939 Alcohol use, unspecified with withdrawal, unspecified (principal) | CPT/HCPCS: 99222 ==

== ENCOUNTER → 2024-12-19 07:56 | Outpatient (BNV) | payer OTHER, SELFPAY | PROVIDERS: Admitting Provider Student in an Organized Health Care Education/Training Program; Emergency Provider Emergency Medicine; PCP Internal Medicine; Visit Provider Internal Medicine | DX: F10.20 Alcohol dependence, uncomplicated (principal) | CPT/HCPCS: 99223 ==